=== PATIENT | female | born 1995 | race Hispanic/Latino ===

== ENCOUNTER 2018-03-20 06:34 | Emergency (ER) | payer SELFPAY ==
[2018-03-20] MEDS ORDERED: Dexamethasone 10 MG/ML VIAL ONE (07:44)
[2018-03-20] MEDS ORDERED: Bicillin LA 1.2 MILLION UNITS/2 ML SYRINGE ONE (07:44)
== END 2018-03-20 08:11 | disposition home or self-care (01) ==
LOC: ERS 06:34
DX: J02.9 Acute pharyngitis, unspecified (principal); F17.210 Nicotine dependence, cigarettes, uncomplicated
CPT/HCPCS: 87081; 87430; 87804; 96372; J0561; J1100